=== PATIENT | female | born 1960 | race Asian ===

== ENCOUNTER 2018-05-15 21:15 | Emergency (ER) | payer BC ==
[~2018-05-15] VITALS: Ht 162.6 cm; Wt 61.7 kg
[2018-05-15 21:46] VITALS: Ht 162.6 cm; Wt 61.7 kg
[2018-05-15 22:39] LABS: BASOPHIL % 0.1 % (0-2); PLATELET COUNT 199 x10^3mcL (130-400); RED CELL DISTRIBUTION WIDTH 13.3 % (11.5-14.5)
[2018-05-15 22:46] LABS: CALCIUM 8.5 mg/dL (8.5-10.1); CARBON DIOXIDE 22.7 mmol/L (21-32); CHLORIDE SERUM 102 mmol/L (98-107); CREATININE SERUM 0.8 mg/dL (0.6-1.0); GFR1 > 60 mL/min; GLUCOSE SERUM 131 mg/dL (74-106); POTASSIUM SERUM 3.1 mmol/L (3.5-5.1); SODIUM SERUM 137 mmol/L (136-145)
[2018-05-15 22:51] LABS: ALBUMIN 3.7 g/dL (3.4-5.0); ALKALINE PHOSPHATASE 56 U/L (46-116); ALT/SGPT 38 U/L (14-59); AST/SGOT 23 U/L (15-37); TOTAL PROTEIN, SERUM 7.1 g/dL (6.4-8.2)
[2018-05-16 00:09] VITALS: BP 105/59
== END 2018-05-16 00:09 | disposition home or self-care (01) ==
LOC: ED 21:15
PROVIDERS: Emergency Medicine
DX: E87.6 Hypokalemia (principal); R11.2 Nausea with vomiting, unspecified; R19.7 Diarrhea, unspecified; K21.9 Gastro-esophageal reflux disease without esophagitis
CPT/HCPCS: J2405; J3490; J7030

== ENCOUNTER 2019-03-07 09:52 | Emergency (ER) | payer BC ==
[~2019-03-07] VITALS: Ht 162.6 cm; Wt 56.7 kg
[2019-03-07 09:57] VITALS: Ht 162.6 cm; Wt 56.7 kg
[2019-03-07 11:22] VITALS: BP 124/59
== END 2019-03-07 11:22 | disposition home or self-care (01) ==
LOC: ED 09:52
DX: J20.9 Acute bronchitis, unspecified (principal); E78.00 Pure hypercholesterolemia, unspecified; K21.9 Gastro-esophageal reflux disease without esophagitis; Z98.51 Tubal ligation status; Z98.890 Other specified postprocedural states